=== PATIENT | female | born 1950 | race Caucasian/White ===

== ENCOUNTER 2020-05-11 10:37 | Emergency (ER) | payer MEDICARE, SELFPAY ==
--- NOTE | 2020-05-11 10:43 | ECG_ITS ---
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 Measurements Intervals [place] Rate: 78 P: 71 MI: 219 QRS: 78 QRSD: 100 T: 27 QT: 416 QTc: 474 Interpretive Statements SINUS RHYTHM WITH FIRST DEGREE AV BLOCK POSSIBLE ANTERIOR MYOCARDIAL INFARCTION , PROBABLY OLD [30 ms Q WAVE IN V3/V4, OR R < 0.2 mV IN V4] INFERIOR MYOCARDIAL INFARCTION , PROBABLY OLD [40+ ms Q WAVE AND/OR ST/T ABNORMALITY IN II/aVF] No previous ECG available for comparison Electronically Signed On 05-11-2020 13:53:29 CDT by Nimisha Rodriguez M.D. [id number]
--- NOTE | 2020-05-11 10:43 | CT_ITS ---
WS: [id number] CT HEAD TECHNIQUE: Noncontrast CT of the head obtained from the skullbase to the vertex. CLINICAL INFORMATION: Symptoms of Acute Stroke COMPARISON: None. DLP: 760.[address] scans at [facility] use at least one of these dose optimization techniques: automat ed exposure control; mA and/or kV adjustment per patient size (includes targeted exams where dose is matched to clinical indication); or iterative reconstruction. FINDINGS: No evidence of intracranial hemorrhage or mass effect. Ventricular system and basal cisterns are singh nt. Moderate small vessel changes with moderate parenchymal volume loss. Chronic lacunar infarcts lef t thalamus and basal ganglia. No extra-axial fluid collections. No evidence of mass or mass effect. N ormal block-white differentiation. Mild mucosal thickening left mastoid air cells. Paranasal sinuses are well aerated. CT/CT head wo con* [id number] IMPRESSION: 1. No evidence of intracranial hemorrhage or mass effect. 2. Moderate small vessel changes with moderate parenchymal volume loss. 3. Chronic lacunar infarct left thalamus and basal ganglia. 4. Mild mucosal thickening left mastoid air cells. 5. No acute intracranial findings. Notified Joe Shore DO at 05/11/2020 11:25 AM.
[2020-05-11 10:47] VITALS: BP 152/67; PULSE 89; RESP 16; TEMP 36.3; O2SAT 94; BMI 35.2
[2020-05-11 11:06] VITALS: PULSE 79; RESP 21; O2SAT 95
[2020-05-11 11:39] LABS: Basophils % 0.5 %; Eosinophils # 0.1 10^3/uL (0.0-0.8); Eosinophils % 2.4 %; Hemoglobin 11.1 g/dL (11.5-15.3); Lymphocytes # 1.1 10^3/uL (0.8-4.8); Lymphocytes % 18.7 %; Mean Corpuscular Hemoglobin 29.3 pg (28.0-34.0); Mean Corpuscular Volume 97.6 fL (81-99); Mean Platelet Volume 9.8 fL (7.4-10.4); Monocytes # 0.3 10^3/uL (0.2-0.9); Monocytes % 5.1 %; Neutrophils # 4.24 10^3/uL (1.8-7.7); Neutrophils % 72.6 %; Nucleated Red Blood Cells % 0 %; Platelet Count 185 10^3/cmm (130-400); Red Blood Count 3.79 10^6/uL (4.1-5.3); Red Cell Distribution Width 15.5 % (12.1-15.1); White Blood Count 5.8 10^3/uL (4.0-10.0)
[2020-05-11 11:51] LABS: INR 0.85 (0.8-1.2)
[2020-05-11 11:52] LABS: Partial Thromboplastin Time 27.5 SECONDS (23.9-36.7)
[2020-05-11 11:59] LABS: Alanine Aminotransferase 13 U/L (0-33); Albumin Level 3.9 g/dL (3.5-5.2); Alkaline Phosphatase 308 IU/L (35-105); Anion Gap 19.4 (5-19); Aspartate Amino Transferase 10 U/L (0-32); Blood Urea Nitrogen 58 mg/dL (8-23); Calcium 9.6 mg/dL (8.5-10.5); Carbon Dioxide 28 mmol/L (22-29); Chloride 95 mmol/L (98-107); Globulin 2.7 g/dL (1.3-4.6); Glucose 209 mg/dL (65-115); Magnesium 2.2 mg/dL (1.7-2.3); Osmolality Calculated 306 mOsm/kg (285-295); Potassium 5.4 mmol/L (3.5-5.1); Sodium 137 mmol/L (136-145); Total Bilirubin 0.5 mg/dL (0.15-1.2); Total Protein 6.6 g/dL (6.6-8.7)
[2020-05-11 12:08] LABS: Ammonia 20 umol/L (11-51)
[2020-05-11 12:10] VITALS: BP 159/81; PULSE 75; RESP 30; O2SAT 95
--- NOTE | 2020-05-11 12:15 | ED_ITS ---
HPI - Neuro Symptoms/Deficit General: Chief Complaint: Neuro Symptoms/Deficit Stated Complaint: stroke like symptoms Time Seen by Provider: 05/11/20 10:42 History of Present Illness: HPI Narrative: 69-year-old female comes in complaining of bilateral upper extremities and right lower extremity what she calls jerking. She also has some in her head she lives at home is been going on for last 2 to 3 days. She has had a history of hemodialysis due to end-stage renal disease from her diabetes she is Saturday dialysis. She has had a little bit of minimally productive cough with no fever. She denies any myalgias or headache or diarrhea. Onset (ago): day(s) (2-3) Timing confirmed by: family member Location: left face and right leg History of same: No Severity: mild Quality: weak Relieving factors: none Exacerbating factors: none Context: gradual onset On Anticoagulants: No Associated symptoms: Deny chest pain, cough, diaphoresis, fevers/chills, headache(s), anorexia, malaise, nausea, seizures, short of breath, syncope, tingling or vertigo Treatments Prior to Arrival: none Review of Systems Const: Denies: malaise or diaphoresis ENMT: Denies: throat pain, ear or mastoid pain, nasal discharge or nasal congestion Card: Denies: chest pain or syncope Resp: Denies: dyspnea, productive cough or non-productive cough GI: Denies: nausea : Denies: flank pain, difficulty voiding, dysuria, urinary frequency or urinary urgency Skin/Breast: Denies: rash or pruritus Neuro: Denies: headache(s) or vertigo PFSH ED PFSH: Medical History (Updated 05/11/20 @ 12:40 by Joe Shore DO) CAD (coronary artery disease) Chronic kidney failure CVA (cerebral vascular accident) Diabetes mellitus History of myocardial infarction PVD (peripheral vascular disease) with claudication Surgical History (Updated 09/01/19 @ 13:27 by Bhavana Jiang MD) S/P lower limb amputation left Family History Mother Heart problem Social History Smoking and tobacco status: never smoked Physical Exam Const: COMMON NORMALS: no acute distress GENERAL APPEARANCE: cooperative and comfortable ORIENTATION/CONSCIOUSNESS: Yes awake, Yes oriented to person, Yes oriented to place and Yes oriented to time HENMT: COMMON NORMALS: normocephalic, atraumatic and hearing grossly normal bilaterally HEAD & SCALP: normocephalic and atraumatic Eye: COMMON NORMALS: Equal, round and reactive pupils present, EOMs intact bilaterally, conjunctivae normal and no scleral icterus CONJUNCTIVA: Yes conjunctivae normal PUPIL: Yes Equal, round and reactive pupils present Neck/C-Spine: COMMON NORMALS: no JVD Resp: COMMON NORMALS: normal respiratory effort, No retractions, No use of accessory muscles and clear to auscultation bilaterally AUSCULTATION: clear to auscultation bilaterally Cardio: COMMON NORMALS: no JVD, regular rate, regular rhythm and No murmurs present (Cardio) RATE: regular rate RHYTHM: regular rhythm GI: COMMON NORMALS: Soft to palpation and No hepatosplenomegaly present AUSCULTATION: Yes normoactive bowel sounds PALPATION: Yes Soft to palpation, No Tenderness to palpation present (GI), No Guarding due to palpation present (GI) and Yes No hepatosplenomegaly present Extremity: NARRATIVE EXTREMITY EXAM: Left lower leg absent due to [id number] amputation right lower no edema no deformity Homans test on the right leg is negative Neuro: SENSORIUM/ORIENTATION: Yes oriented to person, Yes oriented to place and Yes oriented to time Skin: COMMON NORMALS: no rashes or lesions noted GENERAL SKIN EXAM: no rashes or lesions noted Course Vital Signs: Vital signs: Vital Signs Temperature 97.4 F L 05/11/20 10:47 Pulse Rate 77 05/11/20 12:51 Respiratory Rate 27 H 05/11/20 12:51 Blood Pressure 162/91 05/11/20 12:51 Pulse Oximetry 95 05/11/20 12:51 MDM - Neuro Symptoms/Deficit MDM Narrative: Medical decision making narrative: Petrona findings with the patient. The involuntary movements have ceased we will set her up to see neuro follow-up as needed return to the ER if has recurrence problems Lab Data: Labs: Lab Results 05/11/20 05/11/20 05/11/20 Range/Units 11:26 11:35 11:35 WBC 5.8 (4.0-10.0) 10^3/ uL RBC 3.79 L (4.1-5.3) 10^6/u L Hgb 11.1 L (11.5-15.3) g/dL Hct 37.0 (37.0-47.0) % MCV 97.6 (81-99) fL MCH 29.3 (28.0-34.0) pg MCHC 30.0 (30.0-36.0) g/dL RDW 15.5 H (12.1-15.1) % Plt Count 185 (130-400) 10^3/c mm MPV 9.8 (7.4-10.4) fL Neut % (Auto) 72.6 % Lymph % (Auto) 18.7 % Harding % (Auto) 5.1 % Eos % (Auto) 2.4 % Baso % (Auto) 0.5 % Neut # (Auto) 4.24 (1.8-7.7) 10^3/u L Lymph # (Auto) 1.1 (0.8-4.8) 10^3/u L Harding # (Auto) 0.3 (0.2-0.9) 10^3/u L Eos # (Auto) 0.1 (0.0-0.8) 10^3/u L Baso # (Auto) 0.0 (0.0-0.1) 10^3/u L Nucleated RBC % (a uto) 0 % Nucleated RBCs # 0.0 /100WBC PT 11.90 L (12.1-14.9) SECO NDS INR 0.85 (0.8-1.2) APTT 27.5 (23.9-36.7) SECO NDS Sodium (136-145) mmol/L Potassium (3.5-5.1) mmol/L Chloride (98-107) mmol/L Carbon Dioxide (22-29) mmol/L Anion Gap (5-19) BUN (8-23) mg/dL Creatinine (0.5-0.9) mg/dL GFR Calculation Glucose (65-115) mg/dL POC Glucose 184 (70-110) mg/dL Calculated Osmolal ity (285-295) mOsm/k g Calcium (8.5-10.5) mg/dL Magnesium (1.7-2.3) mg/dL Total Bilirubin (0.15-1.2) mg/dL AST (0-32) U/L ALT (0-33) U/L Alkaline Phosphata se (35-105) IU/L Ammonia (11-51) umol/L Total Protein (6.6-8.7) g/dL Albumin (3.5-5.2) g/dL Globulin (1.3-4.6) g/dL 05/11/20 05/11/20 Range/Units 11:35 11:35 WBC (4.0-10.0) 10^3/ uL RBC (4.1-5.3) 10^6/u L Hgb (11.5-15.3) g/dL Hct (37.0-47.0) % MCV (81-99) fL MCH (28.0-34.0) pg MCHC (30.0-36.0) g/dL RDW (12.1-15.1) % Plt Count (130-400) 10^3/c mm MPV (7.4-10.4) fL Neut % (Auto) % Lymph % (Auto) % Harding % (Auto) % Eos % (Auto) % Baso % (Auto) % Neut # (Auto) (1.8-7.7) 10^3/u L Lymph # (Auto) (0.8-4.8) 10^3/u L Harding # (Auto) (0.2-0.9) 10^3/u L Eos # (Auto) (0.0-0.8) 10^3/u L Baso # (Auto) (0.0-0.1) 10^3/u L Nucleated RBC % (a uto) % Nucleated RBCs # /100WBC PT (12.1-14.9) SECO NDS INR (0.8-1.2) APTT (23.9-36.7) SECO NDS Sodium 137 (136-145) mmol/L Potassium 5.4 H (3.5-5.1) mmol/L Chloride 95 L (98-107) mmol/L Carbon Dioxide 28 (22-29) mmol/L Anion Gap 19.4 H (5-19) BUN 58 H (8-23) mg/dL Creatinine 5.5 H (0.5-0.9) mg/dL GFR Calculation Not Reportable Glucose 209 H (65-115) mg/dL POC Glucose (70-110) mg/dL Calculated Osmolal ity 306 H (285-295) mOsm/k g Calcium 9.6 (8.5-10.5) mg/dL Magnesium 2.2 (1.7-2.3) mg/dL Total Bilirubin 0.5 (0.15-1.2) mg/dL AST 10 (0-32) U/L ALT 13 (0-33) U/L Alkaline Phosphata se 308 H (35-105) IU/L Ammonia 20 (11-51) umol/L Total Protein 6.6 (6.6-8.7) g/dL Albumin 3.9 (3.5-5.2) g/dL Globulin 2.7 (1.3-4.6) g/dL Discharge Plan Discharge Patient Disposition: Home Clinical Impression: End-stage renal disease (ESRD), Abnormal involuntary movement Condition: Stable Prescriptions: No Action aspirin [Adult Low Dose Aspirin] 81 mg tablet,delayed release (DR/EC) 81 mg PO DAILY RF: 0 atorvastatin 80 mg tablet 80 mg PO DAILY RF: 0 cholecalciferol (vitamin D3) 1,000 unit capsule 1,000 unit PO DAILY RF: 0 citalopram 40 mg tablet 20 mg PO DAILY RF: 0 clopidogrel 75 mg tablet 75 mg PO DAILY RF: 0 fludrocortisone 0.1 mg tablet 0.2 mg PO DAILY RF: 0 furosemide 40 mg tablet 40 mg PO BID RF: 0 gabapentin 100 mg capsule 200 mg PO TID RF: 0 Novolog U-100 Insulin aspart 100 unit/mL solution See Rx Instructions .ROUTE .COMPLEX RF: 0 midodrine 5 mg tablet 10 mg PO TID RF: 0 pantoprazole 40 mg tablet,delayed release (DR/EC) 40 mg PO BID RF: 0 alprazolam 0.25 mg tablet 0.25 mg PO BID PRN (Reason: Anxiety) RF: 0 Ozempic 0.25 mg or 0.5 mg(2 mg/1.5 mL) Pen Injector 0.5 mg SUBCUT Q7D RF: 0 Discharge Orders: Discharge Order (Routine); Ordered 05/11/20 Ordered By: Joe Shore Referrals: Ingrid Berumen FNP [Family Provider] - Discharge Diet: Usual diet Discharge Activity: Resume usual activity Activity Restrictions/Additional Instructions: Discharge to [facility] for your dialysis run for the day. Case management will call with a follow-up with neurology. Discharge Date/Time: 05/11/20 12:52 Coding Level of Care Code ED Personal Care Attendant for Juliette Fwd Exam Comprehensive
[2020-05-11 12:16] LABS: Glucose Point of Care 184 mg/dL (70-110)
[2020-05-11 12:51] VITALS: BP 162/91; PULSE 77; RESP 27; O2SAT 95
--- NOTE | 2020-05-12 11:56 | DCPLANNER ---
rn unit manager had message to schedule a follow up appointment for patient with neurology. rn unit manager called the office of Dr. Helms, spoke with Piedad, a follow up appointment is scheduled for Saturday, May 16, 2020 at 11:30 with Aroldo. rn unit manager called [phone] - left a voicemail for patient to return mental health case manager phone call. rn unit manager also called [phone] - left a voicemail for patient to return mental health case manager phone call.
--- NOTE | 2020-05-28 09:30 | DCPLANNER ---
Patient had a follow up appointment scheduled for 05.16.[address] Helms - patient did attend appointment.
== END 2020-05-11 12:52 | disposition home or self-care (01) ==
PROVIDERS: Emergency Provider Family Medicine; Family Provider Nurse Practitioner Family
DX: G25.9 Extrapyramidal and movement disorder, unspecified (principal); N18.6 End stage renal disease; Z79.82 Long term (current) use of aspirin; Z79.02 Long term (current) use of antithrombotics/antiplatelets; Z79.4 Long term (current) use of insulin; I25.10 Atherosclerotic heart disease of native coronary artery without angina pectoris; E11.22 Type 2 diabetes mellitus with diabetic chronic kidney disease; I25.2 Old myocardial infarction
CPT/HCPCS: 12345; 36415; 36416; 70450; 80053; 82140; 82962; 83735; 85025; 85610; 85730; 93005; 99284

== ENCOUNTER → 2020-05-16 09:11 | Outpatient (BNVA) | payer MEDICARE, SELFPAY | PROVIDERS: Family Provider Nurse Practitioner Family; Referring Provider Family Medicine; Visit Provider Nurse Practitioner | DX: R25.9 Unspecified abnormal involuntary movements (principal); R29.90 Unspecified symptoms and signs involving the nervous system | CPT/HCPCS: 99204 ==

== ENCOUNTER 2020-05-27 12:13 | Observation (INO) | payer MEDICARE, SELFPAY ==
[2020-05-27] VITALS (7 sets, daily range): BP systolic 130–158; BP diastolic 56–77; PULSE 75–83; RESP 14–20; TEMP 36.3–36.4; O2SAT 92–99; BMI 35.0
--- NOTE | 2020-05-27 13:23 | XR_ITS ---
WS: [id number] Portable AP upright chest, 05/27/2020 Clinical Data: SOB Comparison: None. Findings: The patient has a poor inspiratory effort. There are patchy opacities in the left lower lob e which could represent early pneumonia or atelectasis. The heart is normal. There are left hilar and left lower lobe granulomas. The aortic arch and descending aorta show tortuosity. There are clips in the right upper quadrant from cholecystectomy. Degenerative changes of the right shoulder is noted. XR/XR chest 1V portable [id number] Impression: 1. Poor inspiratory effort. 2. Patchy opacity in left lower lobe which could represent pneumonia.
--- NOTE | 2020-05-27 13:24 | ECG_ITS ---
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 Measurements Intervals [place] Rate: 77 P: 130 AK: 225 QRS: -9 QRSD: 104 T: 0 QT: 417 QTc: 475 Interpretive Statements SINUS RHYTHM WITH FIRST DEGREE AV BLOCK ANTERIOR MYOCARDIAL INFARCTION , PROBABLY OLD [40+ ms Q WAVE AND/OR ST/T ABNORMALITY IN V3/V4] INFERIOR MYOCARDIAL INFARCTION , OF INDETERMINATE AGE [40+ ms Q WAVE AND/OR ST/T ABNORMALITY IN II/aVF] Baseline artifact Compared to ECG 05/11/2020 12:00:25 No significant changes Electronically Signed On 05-27-2020 18:43:37 CDT by Kareem Mejia M.D. [id number]
[2020-05-27 13:55] LABS: Basophils % 0.4 %; Eosinophils # 0.2 10^3/uL (0.0-0.8); Eosinophils % 2.6 %; Hematocrit 32.7 % (37.0-47.0); Hemoglobin 9.6 g/dL (11.5-15.3); Lymphocytes # 1.1 10^3/uL (0.8-4.8); Lymphocytes % 18.9 %; Mean Corpuscular HGB Conc 29.4 g/dL (30.0-36.0); Mean Corpuscular Volume 98.8 fL (81-99); Mean Platelet Volume 9.8 fL (7.4-10.4); Monocytes # 0.3 10^3/uL (0.2-0.9); Monocytes % 5.6 %; Neutrophils # 4.08 10^3/uL (1.8-7.7); Nucleated Red Blood Cells % 0 %; Platelet Count 221 10^3/cmm (130-400); Red Blood Count 3.31 10^6/uL (4.1-5.3); Red Cell Distribution Width 16.1 % (12.1-15.1); White Blood Count 5.7 10^3/uL (4.0-10.0)
[2020-05-27 14:07] LABS: INR 0.97 (0.8-1.2)
[2020-05-27 14:16] LABS: Lactic Sepsis W/Reflex 1.3 mmol/L (0.5-2.2)
[2020-05-27 14:25] LABS: Procalcitonin 0.81 ng/mL (0-0.5)
[2020-05-27 14:38] LABS: Alanine Aminotransferase 11 U/L (0-33); Albumin Level 3.8 g/dL (3.5-5.2); Alkaline Phosphatase 301 IU/L (35-105); Anion Gap 25.5 (5-19); Aspartate Amino Transferase 6 U/L (0-32); Blood Urea Nitrogen 73 mg/dL (8-23); Calcium 8.8 mg/dL (8.5-10.5); Carbon Dioxide 25 mmol/L (22-29); Chloride 89 mmol/L (98-107); Globulin 2.8 g/dL (1.3-4.6); Glucose 157 mg/dL (65-115); Magnesium 3.8 mg/dL (1.7-2.3); Osmolality Calculated 301 mOsm/kg (285-295); Phosphorus 4.2 mg/dL (2.5-4.5); Sodium 133 mmol/L (136-145); Total Bilirubin 0.7 mg/dL (0.15-1.2); Total Protein 6.6 g/dL (6.6-8.7)
[2020-05-27 14:45] LABS: Potassium 6.5 mmol/L (3.5-5.1)
[2020-05-27 14:46] LABS: Troponin(5th) Baseline 104 ng/L (0-10)
[2020-05-27 14:51] LABS: NT Pro B Type Natriuretic Pept > 70000 pg/mL (0-125)
--- NOTE | 2020-05-27 15:08 | PC.NURSE ---
Blood Sugar 160
--- NOTE | 2020-05-27 15:24 | ECG_ITS ---
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 Measurements Intervals [place] Rate: 77 P: 93 [place]: 230 QRS: -19 QRSD: 108 T: 33 QT: 428 QTc: 486 Interpretive Statements SINUS RHYTHM WITH FIRST DEGREE AV BLOCK ANTERIOR MYOCARDIAL INFARCTION [40+ ms Q WAVE AND/OR ST/T ABNORMALITY IN V3/V4], PROBABLY OLD INFERIOR MYOCARDIAL INFARCTION [40+ ms Q WAVE AND/OR ST/T ABNORMALITY IN II/aVF], PROBABLY OLD Compared to ECG 05/27/2020 13:45:04 No significant changes Electronically Signed On 05-27-2020 19:16:10 CDT by Kareem Mejia M.D. [id number]
[2020-05-27 16:56] LABS: Troponin 5 2HR 102.3 ng/L (0-10); Troponin 5 2HR Delta -1.7 ABS# (0-10)
--- NOTE | 2020-05-27 17:48 | P.SS_ITS ---
Short Stay Summary Providers Date of Admit/Discharge: 05/28/20 Chief Complaint: BS LOW, NOT EATING X 3 DAYS HPI History of Present Illness Екатерина Green is a 69 year old female with a past medical history of end-stage renal disease on dialysis that presented to the emergency department for missing dialysis over the past 1 week. Stated that she has had a loose stools over the past several months that have been worse over the past few days. She stated that she did not want to go to dialysis for this reason. She presents today to the ER due to concerns for missing dialysis for the past 1 week. She was seen and evaluated in the emergency department noted to have concern for end-stage renal disease requiring dialysis due to her noncompliance. Patient being placed outpatient in the bed. Given azithromycin for right lower lobe pneumonia. Review of Systems Const: Denies: fever(s) or chills Eyes: Denies: change in vision ENMT: Denies: nasal congestion Card: Denies: chest pain, palpitations or edema Resp: Reports: non-productive cough; Denies: dyspnea, productive cough or hemoptysis GI: Reports: diarrhea; Denies: abdominal pain, nausea, vomiting, constipation, hematochezia or melena : Reports: other (Patient no longer makes urine) Musc: Reports: other (Chronic muscle tremor) Skin/Breast: Denies: rash or new lesions Neuro: Denies: headache(s) or dizziness Psych: Denies: anxiety or depression Endo: Denies: hot flashes Haroon/Lymph: Denies: easy bruising or easy bleeding Home Meds/Allergies Home Medications and Allergies Home Medications Medication Instructions Recorded Confirmed Type aspirin 81 mg tablet,delayed 81 mg PO DAILY tab 09/01/19 05/27/20 History release atorvastatin 80 mg tablet 80 mg PO DAILY tab 09/01/19 05/27/20 History cholecalciferol (vitamin D3) 25 1,000 unit PO DAILY cap 09/01/19 05/27/20 History mcg (1,000 unit) capsule citalopram 40 mg tablet 40 mg PO DAILY tab 09/01/19 05/27/20 History clopidogrel 75 mg tablet 75 mg PO DAILY tab 09/01/19 05/27/20 History fludrocortisone 0.1 mg tablet 0.2 mg PO DAILY tab 09/01/19 05/27/20 History furosemide 40 mg tablet 40 mg PO BID 09/01/19 05/27/20 History gabapentin 100 mg capsule 200 mg PO TID cap 09/01/19 05/27/20 History insulin aspart U-100 100 unit/mL See Rx Instructions .ROUTE 09/01/19 05/27/20 History subcutaneous solution .COMPLEX ml midodrine 5 mg tablet 10 mg PO TID 09/01/19 05/27/20 History pantoprazole 40 mg tablet,delayed 40 mg PO BID tab 09/01/19 05/27/20 History release alprazolam 0.25 mg PO BID PRN 05/11/20 05/27/20 History semaglutide [Ozempic] 0.5 mg SUBCUT Q7D 05/11/20 05/27/20 History Allergies Allergy/AdvReac Type Severity Reaction Status Date / Time moxifloxacin [From Avelox] Allergy Unknown unknown Verified 05/16/20 09:32 PFSH Acute PFSH: Medical History Anxiety CAD (coronary artery disease) Chronic kidney failure CVA (cerebral vascular accident) Depression Diabetes mellitus Diabetic neuropathy Diabetic retinopathy History of myocardial infarction PVD (peripheral vascular disease) with claudication Surgical History History of heart artery stent X5 (2014) S/P ankle fusion S/P lower limb amputation left Family History Mother Heart problem Social History Smoking and tobacco status: never smoked History of recent travel: No Supplemental PFSH Information: Lives at home with her son Ayesha ramirez dependent Vitals/I&O/Wt Last Vital Signs Temp 97.4 F L 05/27/20 14:03 Pulse 80 05/27/20 16:05 Resp 20 H 05/27/20 16:05 BP 151/69 05/27/20 16:05 Pulse Ox 97 05/27/20 16:05 Weight last 48 hrs Weight 92.533 kg Physical Exam Const: COMMON NORMALS: patient oriented x3 and alert GENERAL APPEARANCE: cooperative ORIENTATION/CONSCIOUSNESS: Yes awake, Yes oriented to person, Yes oriented to place and Yes oriented to time HENMT: COMMON NORMALS: normocephalic and atraumatic HEAD & SCALP: normocephalic and atraumatic Eye: COMMON NORMALS: Equal, round and reactive pupils present PUPIL: Yes Equal, round and reactive pupils present Neck/C-Spine: COMMON NORMALS: supple GENERAL: Yes normal visual inspection Resp: COMMON NORMALS: normal respiratory effort and clear to auscultation bilaterally EFFORT & INSPECTION: Yes able to speak in complete sentences AUSCULTATION: clear to auscultation bilaterally, no rhonchi and no wheezes Cardio: COMMON NORMALS: regular rate, regular rhythm and No murmurs present (Cardio) RATE: regular rate RHYTHM: regular rhythm GI: COMMON NORMALS: Soft to palpation and non-tender INSPECTION: No abdominal distension AUSCULTATION: Yes normoactive bowel sounds PALPATION: Yes Soft to palpation Extremity: NARRATIVE EXTREMITY EXAM: s/p L BKA Neuro: COMMON NORMALS: patient oriented x3, CN's II-XII intact bilaterally, moves all extremities and no focal motor deficits SENSORIUM/ORIENTATION: Yes alert, Yes oriented to person, Yes oriented to place and Yes oriented to time SPEECH: speech normal OTHER: chronic tremor Psych: COMMON NORMALS: mental status grossly normal and cooperative Hospital Course Admission Diagnoses: Hyperkalemia with noncompliance with dialysis. Loose stools. Start on lactobacillus Patient with end-stage renal disease with noncompliance, admitted for telemetry nephrology consultation for dialysis today with plan for discharge following Patient did have some slight low blood pressures following dialysis therefore was monitored overnight. On date of discharge she was back to baseline alert and oriented and denied any concerns. She denied any shortness of breath, improved cough SSS Data Data Completed and Pending: Completed Studies During Hospitalization Category Date Time Status XR chest 1V obinna ble [id number] Stat Exams 05/27/20 13:23 Completed Pending at discharge Category Date Time Status Troponin(5th) 6 h our. Timed Lab 05/27/20 19:44 Ordered Procedures Performed: Dialysis Diagnoses at Discharge Discharge Diagnosis (1) ESRD (end stage renal disease): Status: Acute Discharge Plan Discharge Patient Disposition: Home Condition: Stable Prescriptions: New azithromycin 500 mg tablet 500 mg PO DAILY 7 Days Qty: 7 RF: 0 Lactobacillus acidophilus Capsule 100 mg PO TID 30 Days Qty: 30 RF: 0 Continued aspirin [Adult Low Dose Aspirin] 81 mg tablet,delayed release (DR/EC) 81 mg PO DAILY RF: 0 atorvastatin 80 mg tablet 80 mg PO DAILY RF: 0 cholecalciferol (vitamin D3) 1,000 unit capsule 1,000 unit PO DAILY RF: 0 citalopram 40 mg tablet 40 mg PO DAILY RF: 0 clopidogrel 75 mg tablet 75 mg PO DAILY RF: 0 fludrocortisone 0.1 mg tablet 0.2 mg PO DAILY RF: 0 furosemide 40 mg tablet 40 mg PO BID RF: 0 gabapentin 100 mg capsule 200 mg PO TID RF: 0 Novolog U-100 Insulin aspart 100 unit/mL solution See Rx Instructions .ROUTE .COMPLEX RF: 0 midodrine 5 mg tablet 10 mg PO TID RF: 0 pantoprazole 40 mg tablet,delayed release (DR/EC) 40 mg PO BID RF: 0 alprazolam 0.25 mg tablet 0.25 mg PO BID PRN (Reason: Anxiety) RF: 0 Ozempic 0.25 mg or 0.5 mg(2 mg/1.5 mL) Pen Injector 0.5 mg SUBCUT Q7D RF: 0 Discharge Orders: Discharge Order (Routine); Ordered 05/27/20 Ordered By: Ursula Patel Referrals: Ingrid Berumen MACHINE SNELLER [Family Provider] - 1-3 days (Please call Ingrid Berumen's office and make a follow up within one week. [phone]) Discharge Diet: Advance as tolerated and Cardiac Discharge Activity: Increase activity as tolerated Activity Restrictions/Additional Instructions: Discharge to home with azithromycin as prescribed due to pneumonia Continue with dialysis as scheduled on Saturday and Saturday Continue on lactobacillus Attestations Medical Necessity Statement*: Patient required observation due to requiring dialysis due to noncompliance, expected stay less than 2 midnights Time Spent in Patient Care*: greater than 30 min Specific Discharge Activities: Specific discharge activities: educating patient, educating and/or supporting family/caregiver and documenting/other paperwork Quality Metrics Clinical Quality Measures: During this hospital stay, did patient experience: None Coding Level of Care Code Acute Industrial Conveyor Belt Repairer for Juliette Fwd Exam Comprehensive Diagnoses ESRD (end stage renal disease) N18.6
--- NOTE | 2020-05-27 17:51 | PM.PN ---
Subjective Subjective: Interval history: Mrs Green came in with diarrhea, having skipped dialysis for 1 week. She has been on dialysis for 4 years, ESRD due to DM GN. She has an extensive history of vascular disease, BKA, heart disease s/p stents. She has minimal edema and no SOB or other volume assoc symptoms. She has a right AVF that is working well. Diarrhea is now settling down Vitals/I&O/Wt Last Vital Signs Temp 97.4 F L 05/27/20 14:03 Pulse 80 05/27/20 16:05 Resp 20 H 05/27/20 16:05 BP 151/69 05/27/20 16:05 Pulse Ox 97 05/27/20 16:05 Weight last 48 hrs Weight 92.533 kg Physical Exam HENMT: COMMON NORMALS: normocephalic and atraumatic HEAD & SCALP: normocephalic and atraumatic Neck/C-Spine: COMMON NORMALS: no JVD Chest: COMMONS NORMALS: normal inspection of the chest and normal palpation of entire chest wall Resp: COMMON NORMALS: normal respiratory effort and No retractions Cardio: COMMON NORMALS: no JVD and regular rate RATE: regular rate GI: COMMON NORMALS: Normal to inspection, nondistended, normoactive bowel sounds present Data : 05/27/20 13:44 05/27/20 13:44 A&P Additional A&P Information 1. ESRD - will dialyze this evening for critical hyperkalemia - 2K, UF 2-3L - cont MWF schedule 2. Hyperk will correct with dialysis no need for other therapy 3. Hemodynamics are stable 4. OK for DC after dialysis today - all other chronic ESRD issues to be addressed in outpatient clinic Attestations Medical Necessity Statement*: eval for ESRD mgmt Coding Level of Care Code Acute Adjunct Psychology Faculty Member for Juliette Suarez
--- NOTE | 2020-05-27 18:15 | ED_ITS ---
HPI - General Adult General: Chief complaint: General Medical Stated complaint: needs dialysis, lethargic, SI Time Seen by Provider: 05/27/20 13:05 History of Present Illness: HPI narrative: This patient is a 69-year-old female who presents today with her son. She is a dialysis patient but has not been to dialysis in a week because she was having diarrhea and was concerned about incontinence. She also is making statements about wanting to . She has been noncompliant with her medications in the past day and a half. The patient used to be seen by Dr. Vasques but is not sure who her new occupational health coordinator is currently. Her last dialysis was Saturday 1 week ago. She is not acting normal and is having twitching. No fever. No cough. Onset (ago): week(s) (1) Associated symptoms: Deny chest pain, dyspnea, headache(s), rash or vomiting Review of Systems General: Reports: 10 or more systems reviewed and unremarkable except in HPI and below Const: Denies: fever(s) or chills Eyes: Denies: change in vision ENMT: Denies: odynophagia Card: Denies: chest pain or swelling of feet/ankles Resp: Denies: dyspnea, productive cough or non-productive cough GI: Denies: abdominal pain or vomiting Musc: Denies: neck pain or back pain Skin/Breast: Denies: rash Neuro: Denies: headache(s) PFSH ED PFSH: Medical History Anxiety CAD (coronary artery disease) Chronic kidney failure CVA (cerebral vascular accident) Depression Diabetes mellitus Diabetic neuropathy Diabetic retinopathy History of myocardial infarction PVD (peripheral vascular disease) with claudication Surgical History History of heart artery stent X5 (2015) S/P ankle fusion S/P lower limb amputation left Family History Mother Heart problem Social History Smoking and tobacco status: never smoked History of recent travel: No Physical Exam Const: COMMON NORMALS: no acute distress and no limitations GENERAL APPEARANCE: cooperative and lethargic ORIENTATION/CONSCIOUSNESS: Yes lethargic HENMT: HEAD & SCALP: normal to inspection FACE & SINUS: normal facial exam Eye: GENERAL EYE: appearance normal, both eyes and all related structures Neck/C-Spine: COMMON NORMALS: supple, no meningeal signs and no JVD Chest: COMMONS NORMALS: normal inspection of the chest Resp: COMMON NORMALS: normal respiratory effort, No use of accessory muscles and clear to auscultation bilaterally AUSCULTATION: clear to auscultation bilaterally Cardio: COMMON NORMALS: no JVD, regular rate, regular rhythm and No murmurs present (Cardio) RATE: regular rate RHYTHM: regular rhythm GI: COMMON NORMALS: Normal to inspection, nondistended, normoactive bowel sounds present, Soft to palpation and non-tender INSPECTION: Yes normal to inspection AUSCULTATION: Yes normoactive bowel sounds PALPATION: Yes Soft to palpation Back/Pelvis: COMMON NORMALS: thoracic and lumbar spine normal to inspection Extremity: GENERAL: Yes normal exam except as noted and Yes AV fistula (Right forearm) OTHER: Left lower extremity amputation Neuro: COMMON NORMALS: moves all extremities, no focal motor deficits and no sensory deficits noted SENSORIUM/ORIENTATION: Yes lethargic MENINGEAL S IGNS: Yes no meningeal signs Psych: COMMON NORMALS: mental status grossly normal, cooperative and normal affect Skin: COMMON NORMALS: no rashes or lesions noted and turgor normal GENERAL SKIN EXAM: no rashes or lesions noted and turgor normal Course ED course: The patient did say that she wanted to . She feels like she is a burden to her family. We discussed that her son seems quite opposed to the idea of her dying and that I think he would like her to continue to live. We also discussed that she might not be thinking clearly right now because she has missed dialysis for so long and has a lot of waste products in her blood. She agreed with this and said that she did not want to . She said if her son wants her to be around she will stay around. She definitely does need dialysis and will be admitted as an outpatient in a bed for that purpose. Chest x-ray did show a slight right lower lobe infiltrate and she will be put on some Zithromax for that. I also discussed her case with Dr. Miranda and hopefully he will have the opportunity to evaluate her on the floor, I do feel that she is not at all suicidal. I feel that her accepting dialysis today is a signal of that. Vital Signs: Vital signs: Vital Signs Temperature 98.5 F 05/28/20 08:00 Pulse Rate 62 05/28/20 08:00 Respiratory Rate 18 05/28/20 08:00 Blood Pressure 128/79 05/28/20 08:00 Pulse Oximetry 91 05/28/20 08:00 [facility] - General Adult Lab Data: Labs: Lab Results 05/27/20 05/27/20 05/27/20 Range/Units 13:44 13:44 13:44 WBC 5.7 (4.0-10.0) 10^3/ uL RBC 3.31 L (4.1-5.3) 10^6/u L Hgb 9.6 L (11.5-15.3) g/dL Hct 32.7 L (37.0-47.0) % MCV 98.8 (81-99) fL MCH 29.0 (28.0-34.0) pg MCHC 29.4 L (30.0-36.0) g/dL RDW 16.1 H (12.1-15.1) % Plt Count 221 (130-400) 10^3/c mm MPV 9.8 (7.4-10.4) fL Neut % (Auto) 72.0 % Lymph % (Auto) 18.9 % Treasure % (Auto) 5.6 % Eos % (Auto) 2.6 % Baso % (Auto) 0.4 % Neut # (Auto) 4.08 (1.8-7.7) 10^3/u L Lymph # (Auto) 1.1 (0.8-4.8) 10^3/u L Treasure # (Auto) 0.3 (0.2-0.9) 10^3/u L Eos # (Auto) 0.2 (0.0-0.8) 10^3/u L Baso # (Auto) 0.0 (0.0-0.1) 10^3/u L Nucleated RBC % (a uto) 0 % Nucleated RBCs # 0.0 /100WBC PT (12.1-14.9) SECO NDS INR (0.8-1.2) Sodium 133 L (136-145) mmol/L Potassium 6.5 H* (3.5-5.1) mmol/L Chloride 89 L (98-107) mmol/L Carbon Dioxide 25 (22-29) mmol/L Anion Gap 25.5 H (5-19) BUN 73 H (8-23) mg/dL Creatinine 7.6 H* (0.5-0.9) mg/dL GFR Calculation Not Reportable Glucose 157 H (65-115) mg/dL Calculated Osmolal ity 301 H (285-295) mOsm/k g Lactic Acid 1.3 (0.5-2.2) mmol/L Calcium 8.8 (8.5-10.5) mg/dL Phosphorus 4.2 (2.5-4.5) mg/dL Magnesium 3.8 H (1.7-2.3) mg/dL Total Bilirubin 0.7 (0.15-1.2) mg/dL AST 6 (0-32) U/L ALT 11 (0-33) U/L Alkaline Phosphata se 301 H (35-105) IU/L Troponin T Baselin e (0-10) ng/L Troponin T 120 Min eun (0-10) ng/L Delta Troponin T (0-10) ABS# NT-Pro-B Natriuret Pep > 36928 H (0-125) pg/mL Total Protein 6.6 (6.6-8.7) g/dL Albumin 3.8 (3.5-5.2) g/dL Globulin 2.8 (1.3-4.6) g/dL Procalcitonin 0.81 H (0-0.5) ng/mL 05/27/20 05/27/20 05/27/20 Range/Units 13:44 13:44 16:02 WBC (4.0-10.0) 10^3/ uL RBC (4.1-5.3) 10^6/u L Hgb (11.5-15.3) g/dL Hct (37.0-47.0) % MCV (81-99) fL MCH (28.0-34.0) pg MCHC (30.0-36.0) g/dL RDW (12.1-15.1) % Plt Count (130-400) 10^3/c mm MPV (7.4-10.4) fL Neut % (Auto) % Lymph % (Auto) % Treasure % (Auto) % Eos % (Auto) % Baso % (Auto) % Neut # (Auto) (1.8-7.7) 10^3/u L Lymph # (Auto) (0.8-4.8) 10^3/u L Treasure # (Auto) (0.2-0.9) 10^3/u L Eos # (Auto) (0.0-0.8) 10^3/u L Baso # (Auto) (0.0-0.1) 10^3/u L Nucleated RBC % (a uto) % Nucleated RBCs # /100WBC PT 13.20 (12.1-14.9) SECO NDS INR 0.97 (0.8-1.2) Sodium (136-145) mmol/L Potassium (3.5-5.1) mmol/L Chloride (98-107) mmol/L Carbon Dioxide (22-29) mmol/L Anion Gap (5-19) BUN (8-23) mg/dL Creatinine (0.5-0.9) mg/dL GFR Calculation Glucose (65-115) mg/dL Calculated Osmolal ity (285-295) mOsm/k g Lactic Acid (0.5-2.2) mmol/L Calcium (8.5-10.5) mg/dL Phosphorus (2.5-4.5) mg/dL Magnesium (1.7-2.3) mg/dL Total Bilirubin (0.15-1.2) mg/dL AST (0-32) U/L ALT (0-33) U/L Alkaline Phosphata se (35-105) IU/L Troponin T Baselin e 104 H* (0-10) ng/L Troponin T 120 Min eun 102.3 H (0-10) ng/L Delta Troponin T -1.7 L (0-10) ABS# NT-Pro-B Natriuret Pep (0-125) pg/mL Total Protein (6.6-8.7) g/dL Albumin (3.5-5.2) g/dL Globulin (1.3-4.6) g/dL Procalcitonin (0-0.5) ng/mL Discharge Plan Discharge Patient Disposition: Home Clinical Impression: ESRD (end stage renal disease) Condition: Stable Discharge Orders: Discharge Order (Routine); Ordered 05/27/20 Ordered By: Ursula Patel Discharge Diet: Advance as tolerated and Cardiac Discharge Activity: Increase activity as tolerated Discharge Date/Time: 05/27/20 19:20 Coding Level of Care Code ED [employer] Fwd Exam Comprehensive
[2020-05-27 20:06] LABS: Glucose Point of Care 164 mg/dL (70-110)
[2020-05-27 20:40] LABS: Troponin 5 6HR 100.9 ng/L (0-10); Troponin 5 6HR Delta -3.1 ng/L (0-12)
--- NOTE | 2020-05-27 20:46 | PC.NURSE ---
pt is agreeable to dialysis. She is in dialysis at this time.
--- NOTE | 2020-05-27 23:24 | PC.NURSE ---
Pt still in dialysis, gerson well.
--- NOTE | 2020-05-27 23:36 | PC.NURSE ---
There are no telemetry available at this time, notified.
[2020-05-28] VITALS: BP 83/60; PULSE 125; RESP 16; TEMP 36.4; O2SAT 92
[2020-05-28] MEDS: midodrine 5 mg TABLET 10 MG PO (00:49)
[2020-05-28] MEDS: pantoprazole DR 40 mg Tablet PO (00:49)
[2020-05-28 04:00] VITALS: BP 90/55; PULSE 118; RESP 16; TEMP 36.6; O2SAT 96
[2020-05-28 05:58] VITALS: BP 99/64
[2020-05-28 08:00] VITALS: BP 128/79; PULSE 62; RESP 18; TEMP 36.9; O2SAT 91
== END 2020-05-28 09:00 | disposition home or self-care (01) ==
LOC: ER 18:04 → MEDSURG 18:30
PROVIDERS: Admitting Provider Family Medicine; Emergency Provider Emergency Medicine; Family Provider Nurse Practitioner Family; Visit Provider Family Medicine
DX: E11.22 Type 2 diabetes mellitus with diabetic chronic kidney disease (principal); N18.6 End stage renal disease; Z99.2 Dependence on renal dialysis; Z79.82 Long term (current) use of aspirin; F41.9 Anxiety disorder, unspecified; I25.10 Atherosclerotic heart disease of native coronary artery without angina pectoris; Z86.73 Personal history of transient ischemic attack (TIA), and cerebral infarction without residual deficits; E11.40 Type 2 diabetes mellitus with diabetic neuropathy, unspecified; I25.2 Old myocardial infarction
CPT/HCPCS: 12345; 36415; 36416; 71045; 80053; 82962; 83605; 83735; 83880; 84100; 84145; 84484; 85025; 85610; 93005; 99284; 99285; G0378; Q3014